=== PATIENT | female | born 1970 | race Hispanic/Latino ===

== ENCOUNTER 2022-11-16 11:21 | Emergency (ER) | payer BC ==
[2022-11-16 12:44] LABS: #Basophils 0.1 thou/uL (0.0-0.2); #Eosinphils 0.2 thou/uL (0.0-0.7); #Monocytes 0.5 thou/uL (0.11-0.59); %Basophils 0.9 % (0.0-1.0); %Eosinophils 3.2 % (0.0-10.0); %Lymphocytes 27.3 % (21.0-51.0); %Monocytes 7.8 % (0.0-10.0); %Neutrophils 60.5 % (42.0-75.0); Hemoglobin 12.7 g/dL (12.0-16.0); Mean Corpuscular HGB CONC 34.7 g/dL (32.0-36.0); Mean Corpuscular Hemoglobin 33.8 pg (27.0-31.0); Mean Corpuscular Volume 97.3 fl (78.0-98.0); Platelet Count 247 10x3/uL (130-400); RBC Distribution Width 11.4 % (11.5-14.5); Red Blood Cell (RBC) Count 3.76 mill/uL (4.20-5.40); White Blood Cell (WBC) Count 6.5 10x3/uL (4.8-10.8)
[2022-11-16 12:56] LABS: INR-International Normal Ratio 0.9; PTT 27.5 sec (22.9-36.1); Prothrombin Time 12.9 sec (12.0-14.7)
[2022-11-16 13:09] LABS: ALT (SGPT) 20 U/L (8-55); AST (SGOT) 17 U/L (5-34); Alkaline Phosphatase 64 U/L (40-110); Anion Gap 10 mmol/L (10-20); BUN (Urea Nitrogen) 21 mg/dL (7.0-18.7); Bilirubin, Total 0.2 mg/dL (0.2-1.2); Calc. Creatinine Clearance 0 mL/min (70-130); Calcium 9.1 mg/dL (7.8-10.44); Carbon Dioxide 25 mmol/L (22-29); Chloride 106 mmol/L (98-107); Estimated GFR 88; Globulin 2.5 g/dL (2.4-3.5); Glucose 97 mg/dL (70-105); Potassium 4.3 mmol/L (3.5-5.1); Protein, Total 6.5 g/dL (6.0-8.3); Sodium 137 mmol/L (136-145)
== END 2022-11-16 13:29 | disposition home or self-care (01) ==
LOC: ERS 11:21
DX: K92.1 Melena (principal)
CPT/HCPCS: 36415; 80053; 82274; 85025; 85610; 85730; 86850; 86900; 86901; 99284

== ENCOUNTER 2024-12-31 09:48 | Outpatient (CLI) | payer BC | END 2024-12-31 09:49 | disposition home or self-care (01) | LOC: BICRAD 09:48 | PROVIDERS: ATTEND Family Medicine | DX: M19.071 Primary osteoarthritis, right ankle and foot (principal) ==